=== PATIENT | male | born 1960 | race Caucasian/White ===

== ENCOUNTER → 2020-05-24 11:14 | Outpatient (CLI) | payer SELFPAY ==
--- NOTE | ~2020-05-24 | XR_ITS ---
XR_CERV2-3V_CR 05/24/2020 12:02 Indication: Chronic neck pain for 3 months Procedure: 4 views of the cervical spine Comparison: No prior studies for comparison. Findings: Vertebral body heights are maintained. There are prominent ventral osteophytes at multiple levels. There is moderate multilevel uncinate and facet hypertrophy. No prevertebral soft tissue swel ling. Odontoid process within normal limits. Lung apices are unremarkable. Impression: 1: Moderate cervical spondylosis. Reviewed, dictated and finalized at location A. T MANAGER Impression: 1: Moderate cervical spondylosis.
--- NOTE | ~2020-05-24 | XR_ITS ---
XR thoracic spine 2V 05/24/2020 12:02 Indication: Thoracic back pain Procedure: 2 views of the thoracic spine Comparison: No prior studies for comparison. Findings: Normal thoracic kyphosis. Mild levocurvature of the thoracic spine. There is mild disc narr owing and endplate degenerative change at multiple levels. No fracture or traumatic malalignment. No paraspinal soft tissue abnormality. There is atherosclerosis. Surrounding osseous structures within n ormal limits. Impression: 1: Mild thoracic spondylosis with levocurvature of the thoracic spine. Reviewed, dictated and finalized at location A. LY SERVICE ASSISTANT Impression: 1: Mild thoracic spondylosis with levocurvature of the thoracic spine.
== END ==
PROVIDERS: PCP Family Medicine; Visit Provider Family Medicine
DX: M47.813 Spondylosis without myelopathy or radiculopathy, cervicothoracic region (principal)
CPT/HCPCS: 72040; 72070

== ENCOUNTER 2020-10-21 12:44 | Outpatient (CLI) | payer BC, SELFPAY ==
--- NOTE | ~2020-10-21 | CT_ITS ---
EXAMINATION: CT abdomen pelvis wo con EXAM DATE: 10/21/2020 14:04 INDICATION: Kidney stone . Bilateral flank pain. TECHNIQUE: Spiral CT of the abdomen and pelvis was performed without contrast. Axial, coronal and sag ittal images were reviewed. The dose-length product (DLP) for this examination was 201.14 mGy-cm. T he exposure was tailored according to patient size (auto mA exposure control), and iterative reconstr uction (ASIR) was used as additional dose reduction technique. Comparison is made to prior examinatio n from 03/13/2019. FINDINGS: There is inferior calyceal stone measuring 7 mm. Additional several left calyceal stones up to 5 mm. No discrete right nephrolithiasis. No hydronephrosis or obstructive nephropathy. There are mildly hyperdense renal pyramids, mild medullary nephrocalcinosis. The prostate is unremarkable. Th e bladder is unremarkable. The liver, spleen, adrenal glands and pancreas are unremarkable. There are gallstones within an othe rwise unremarkable gallbladder. No evidence of obstructive biliary disease. There is no retroperito kenneth or pelvic lymphadenopathy. There is mild to moderate scattered arteriosclerotic disease. The appendix is normal. The stomach and small bowel are unremarkable. There is expected amount of c olonic stool. No free intraperitoneal gas. The heart is normal in size. There are no pericardial or pleural effusions. Mild basilar emphysema. There are no osteoblastic or osteolytic lesions iden tified. IMPRESSION: 1. Left nephrolithiasis. Mild bilateral medullary nephrocalcinosis. 2. Cholelithiasis. 3. No acute findings. Reviewed, dictated and finalized at location B.
--- NOTE | ~2020-10-21 | XR_ITS ---
XR wrist LT min 3V DATE: 10/21/2020 13:07 INDICATION: Hyperextension injury of thumb, scaphoid area pain TECHNIQUE: 4 views COMPARISON: None FINDINGS: Osteoarthritic changes noted at the radiocarpal, scapholunate, first carpometacarpal and fi rst metacarpophalangeal joints. There are some calcifications of the triangular cartilage. No fracture or dislocation, periosteal reaction or bone destruction. IMPRESSION: Polyarticular osteoarthritis Reviewed, dictated and finalized at location A.
--- NOTE | ~2020-10-21 | US_ITS ---
EXAMINATION: US renal BI EXAM DATE: 10/21/2020 14:05 INDICATION: increased frequency of urination . TECHNIQUE: Multiple grayscale and Doppler images of the kidneys were obtained (by a technologist who performed the scan) and subsequently reviewed. Correlation is made to noncontrast CT scan same date. FINDINGS: Right kidney: There is normal contour and echogenicity. It measures 11.7 x 6.2 x 4.6 centimeters. T here are no focal renal lesions identified. There is no hydronephrosis. Left kidney: There is normal contour and echogenicity. It measures 10.5 x 6.1 x 5.8 centimeters. Lar ge left nephrolithiasis. There is no hydronephrosis. Bladder prevoid volume was 58 mm, postvoid bladder volume 7 mm, small postvoid residual. IMPRESSION: 1. Left nephrolithiasis. 2. Small post void residual. Reviewed, dictated and finalized at location B.
== END 2020-10-21 12:45 | disposition home or self-care (01) ==
PROVIDERS: PCP Family Medicine; Referring Provider Family Medicine
DX: R35.0 Frequency of micturition (principal); N20.0 Calculus of kidney; K57.30 Diverticulosis of large intestine without perforation or abscess without bleeding; M19.032 Primary osteoarthritis, left wrist
CPT/HCPCS: 73110; 74176; 76775

== ENCOUNTER 2021-02-11 12:17 | Outpatient (RCR) | payer BC, SELFPAY ==
--- NOTE | 2021-02-11 13:56 | PTOPEVAL ---
PHYSICAL THERAPY EVALUATION and PLAN OF CARE Thank you for referring Joseph Zhang to [facility].? The patient is scheduled to be seen for therapy? 1-2x/week for 4-8 weeks. Please review, sign, date and return this plan of care FROILAN. I agree with and certify that the following plan of care is medically necessary. Referring Physician Date Attending Provider: Desmond Potter, PA Evaluation Diagnosis left shoulder pain, acute Onset 2months Subjective Information Reports that for several Query Text:As Reported By Patient/ months he has been Family experiencing pain in the left shoulder when raising overhead . States that when he raises it a certain way there is a pain that shoots across his back and up his neck. 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 other history: has history of chronic low back pain Self Report Pain Assessment Left Shoulder(s) Reported Pain Level 5 Pain Description Aching,Shooting,Stabbing Lowest Pain Intensity 4 Greatest Pain Intensity 10 Other Pain Aggravating Factors working overhead Pain Behaviors Guarding Pain Score Pain Score 5: Self Report Interventions Used Interventions Used By Clinicians Exercise,Manual Therapy Techniques Pain Relief Interventions Used By Medication Patient Upper Extremity Range of Motion Scapular/ Shoulder Range of Motion Left Shoulder Flexion - Active 130 Shoulder Abduction - Active 110 Shoulder Medial Rotation - Active l4 Query Text:Reach Behind the Back Upper Extremity Muscle Strength Testing Scapular/Shoulder Left Scapular Retraction - Middle Trapezius 4+ Good + Shoulder Flexion Strength 5 Normal Shoulder Extension Strength 5 Normal Shoulder Abduction Strength 5 Normal Shoulder Medial Rotation Strength 5 Normal Shoulder Lateral Rotation Strength 5 Normal Elbow/Forearm Left Elbow Flexion Strength 5 Normal Elbow Extension Strength 5 Normal Muscle Length Testing Muscle Length Testing Latissmus Dorsi Muscle Length (L) Moderate Tightness Upper Trapezius Muscle Length (R) Moderate Tightness,(L) Moderate Tightness Pectoralis Major Muscle Length (R) Severe Tightness,(L) Severe Tightness Pectoralis Major- Sternal Fibers Muscl
--- NOTE | 2021-02-18 15:57 | PCPTNOTE ---
Patient called & cancelled scheduled appointment this date due to work.
--- NOTE | 2021-02-25 17:20 | PCPTNOTE ---
Patient called & cancelled scheduled appointment this date due to running late from work.
--- NOTE | 2021-04-16 07:36 | PCPTNOTE ---
PHYSICAL THERAPY DISCHARGE NOTE Attending Provider: Desmond Potter, PA Patient:Joseph Zhang Date of :1960 Patient has not returned for any further treatments since 02/11/2021, therefore he will be discharged at this time. Patient?s initial visit was on 02/11/2021. The goals have been (met, not met, partially met). Thank you for referring this patient to [facility]. Please review, sign, date and return this discharge summary FROILAN. I have been updated about the patient's current status and I agree with discharge from the above service at this time. Referring Physician Date
== END 2021-04-20 12:53 | disposition home or self-care (01) ==
LOC: ANHPT 12:17
PROVIDERS: PCP Family Medicine; Visit Provider Physician Assistant
DX: S49.92XD Unspecified injury of left shoulder and upper arm, subsequent encounter (principal)
CPT/HCPCS: 97140; 97162

== ENCOUNTER 2021-08-10 14:52 | Outpatient (CLI) | payer BC, SELFPAY ==
--- NOTE | ~2021-08-10 | XR_ITS ---
XR wrist LT min 3V DATE: 08/10/2021 15:20 INDICATION: Left thumb pain TECHNIQUE: 4 views COMPARISON: 10/21/2020 left wrist FINDINGS: There is severe osteoarthritic change at the first carpometacarpal joint. There is osteoarthritis at the radiocarpal joint. There is mild osteoarthritis at the first metacarpo phalangeal joint. Mild triangular cartilage calcification. No fracture or dislocation, periosteal reaction or bone destruction. IMPRESSION: Osteoarthritis; little interval change since 10/21/2020 Reviewed, dictated and finalized at location A.
== END 2021-08-10 14:53 | disposition home or self-care (01) ==
LOC: ANHIMG 14:54
PROVIDERS: PCP Physician Assistant; Visit Provider Physician Assistant
DX: M79.645 Pain in left finger(s) (principal)
CPT/HCPCS: 73110

== ENCOUNTER 2021-09-30 10:52 | Outpatient (CLI) | payer BC, SELFPAY ==
--- NOTE | 2021-09-30 11:30 | NEURO_ITS ---
Impression: # Complains of left hand numbness. # No Carpal Tunnel Syndrome or ulnar neuropathy. # Needle/EMG exam abnormal with neurogenic changes in muscles. # Findings suggestive of higher involvement; MRI of C-spine suggested. Nerve Conduction Studies Anti Sensory Summary Table Stim Site NR Peak (ms) P-T Amp (?V) Site1 Site2 Delta-P (ms) Dist (cm) Rajat (m/s) Left Median Anti Sensory (2-3nd Digit) Wrist 3.7 18.0 Wrist 2-3nd Digit 3.7 14.0 38 Wrist 3.7 17.6 Wrist 2-3nd Digit 3.7 14.0 38 Left Radial Anti Sensory (Base 1st Digit) Wrist 2.4 18.1 Wrist Base 1st Digit 2.4 0.0 Left Ulnar Anti Sensory (5th Digit) Wrist 2.7 16.6 Wrist 5th Digit 2.7 14.0 52 Motor Summary Table Stim Site NR Onset (ms) O-P Amp (mV) Site1 Site2 Delta-0 (ms) Dist (cm) Rajat (m/s) Left Median Motor (Abd Poll Brev) Wrist 3.8 2.9 Elbow Wrist 5.7 30.0 53 Elbow 9.5 2.2 Left Ulnar Motor (Abd Dig Minimi) Wrist 2.7 6.0 A Elbow Wrist 5.7 33.0 58 A Elbow 8.4 4.9 F Wave Studies NR F-Lat (ms) L-R F-Lat (ms) Left Median (Mrkrs) (Abd Poll Brev) 28.20 Left Ulnar (Mrkrs) (Abd Dig Min) 29.86 EMG Side Muscle Nerve Root Ins Act Fibs Amp Dur Recrt Comment Left 1stDorInt Ulnar C8-T1 Nml Nml Nml >12ms Reduced Left Ext Indicis Radial (Post Int) C7-8 Nml Nml Nml Nml Nml Left Ext Digitorum Radial (Post Int) C7-8 Nml Nml Nml Nml Nml Left BrachioRad Radial C5-6 Nml Nml Nml >12ms Reduced Left PronatorTeres Median C6-7 Nml Nml Nml Nml Nml Left Abd Poll Brev Median C8-T1 Nml Nml Nml >12ms Reduced Left ABD Dig Min Ulnar C8-T1 Nml Nml Nml >12ms Reduced Left Biceps Musculocut C5-6 Nml Nml Nml >12ms Reduced Left Triceps Radial C6-7-8 Nml Nml Nml >12ms Reduced Left Deltoid Axillary C5-6 Nml Nml Nml >12ms Reduced MTDD
== END 2021-09-30 10:53 | disposition home or self-care (01) ==
LOC: ANHNEURO 10:54
PROVIDERS: PCP Physician Assistant; Visit Provider Physician Assistant
DX: R20.0 Anesthesia of skin (principal)
CPT/HCPCS: 95886; 95909

== ENCOUNTER 2022-01-04 11:16 | Emergency (ER) | payer BC, SELFPAY ==
[2022-01-04 11:27] VITALS: BP 126/76; PULSE 67; RESP 16; TEMP 36; O2SAT 100
--- NOTE | 2022-01-04 12:28 | ED.UPPEXIN ---
HPI - Extremity Injury (Upper) General Chief Complaint: Extremity Injury, Upper Stated Complaint: Right Hand Pain Time Seen by Provider: 01/04/22 12:28 Source: patient, RN notes reviewed and old records reviewed Mode of arrival: ambulatory Limitations: no limitations History of Present Illness HPI narrative: 61-year-old male presents to the [facility] with complaints of right hand pain, redness and swelling to the palmar aspect just below the second digit. Patient states approximately 1 week ago he got an aluminum sliver stuck in his hand, dug it out. Has full range of motion of all 5 fingers. Sensation intact in all 5 fingers. Capillary refill under 2 seconds. Unknown last Tdap Related Data Home Medications Medication Instructions Recorded Confirmed hydrocodone 5 mg-acetaminophen 325 1 tablet PO Q6H PRN Pain 01/04/22 01/04/22 mg tablet prednisone 10 mg tablet 10 mg PO DAILY 01/04/22 01/04/22 Allergies Allergy/AdvReac Type Severity Reaction Status Date / Time No Known Allergies Allergy Unknown Verified 01/04/22 11:50 Review of Systems Review of Systems: All systems reviewed & are unremarkable except as noted in HPI and below Constitutional: Constitutional: Reports no additional constitutional complaints, Denies chills and Denies fever(s) Eyes: Eyes: Reports no additional eye complaints ENT: Reports system reviewed and no additional complaints, except as documented Cardiovascular: Cardiovascular: Reports no additional cardiovascular complaints Respiratory: Respiratory: Reports no additional respiratory complaints Gastrointestinal: Gastrointestinal: Reports no additional gastrointestinal complaints Musculoskeletal: Musculoskeletal: Reports as per HPI Integumentary/Breasts: Skin/Breast: Reports as per HPI and Reports erythema Neurologic: Reports system reviewed and no additional complaints, except as documented Psychiatric: Psychiatric: Reports no additional psychiatric complaints Allergic/Immunologic: Allergic/Immunologic: Reports no additional allergic/immunologic complaints [facility] Family History Family History Father Hypertension Family history of coronary artery disease Family history of malignant neoplasm Family history of congestive heart failure Mother Hypertension Family history of diabetes mellitus in first degree relative Family history of dementia Family history of congestive heart failure Social History Social History Smoking status: Smoker, status unknown Second hand tobacco smoke exposure: Yes Alcohol intake: current Gender identity (if verbalized by the patient): Male Comments At the time of my signature, I reviewed and agree with the nursing past medical, surgical, social, and family history. There is no relevant family history pertinent to the patient complaint. Exam Const: General: healthy appearing, no acute distress and alert Nutritional Appearance: well nourished Orientation/consciousness: patient oriented x3 Limitations: no limitations HENMT: Head: normal to inspection Ears: external ears normal General nose exam: Normal external nose present Eyes: General: appearance normal, both eyes and all related structures Pupils: Equal, round and reactive pupils present Neck: Neck: normal visual inspection, no lymphadenopathy and no meningeal signs Chest: Chest palpation & inspection: normal inspection of the chest Resp: Effort & Inspection: normal respiratory effort and no use of accessory muscles Auscultation: clear to auscultation bilaterally, no crackles, no rales, no rhonchi and no wheezes Cardio: Rate: regular rate Rhythm: regular rhythm Back/Spine/Pelvis: Cervical Spine: normal cervical lordosis Thoracic/Lumbar Spine: thoracic and lumbar spine normal to inspection Skin: General skin exam: normal color Rashes: no rashes Neuro:
[2022-01-04] MEDS: TETANUS,DIPHTHERIA,AC PERTUSSIS ADULT (0.5 ML) BOOSTRIX IM (12:43)
== END 2022-01-04 13:06 | disposition home or self-care (01) ==
PROVIDERS: Emergency Provider Nurse Practitioner; PCP Physician Assistant
DX: L03.113 Cellulitis of right upper limb (principal); Z23 Encounter for immunization; M06.9 Rheumatoid arthritis, unspecified
CPT/HCPCS: 90471; 90715; 99213; G0463

== ENCOUNTER 2022-01-07 17:13 | Emergency (ER) | payer BC, SELFPAY ==
--- NOTE | ~2022-01-07 | XR_ITS ---
XR hand RT min 3V 01/07/2022 18:38 Indication: Infection second metacarpal phalangeal joint. Procedure: 3 views right hand Comparison: No prior studies for comparison. Findings: There is polyarticular osteoarthritis most advanced at the triscaphe, first carpal metacarp al and metacarpal phalangeal joints. There is probable chondrocalcinosis at the third metacarpophalan geal joint. No acute fracture or traumatic malalignment. There are are atherosclerotic changes of the wrist. No foreign bodies. Impression: 1: No acute bone or joint abnormality. 2: Moderate polyarticular osteoarthritis. Reviewed, dictated and finalized at location A. Impression: 1: No acute bone or joint abnormality. 2: Moderate polyarticular osteoarthritis.
[2022-01-07 17:16] VITALS: BP 142/71; PULSE 61; RESP 20; TEMP 36.4; O2SAT 100
[2022-01-07 17:26] LABS: Basophils Percent Auto 0.1 % (0.2-1.2); Eosinophils Absolute Auto 0.1 K/mm3 (0-0.3); Hematocrit 41.5 % (42.0-52.0); Hemoglobin 14.6 g/dL (14.0-18.0); Immature Granulocyte Absolute 0.04 K/mm3 (0.00-0.031); Immature Granulocyte Percent A 0.6 % (0-0.5); Lymphocytes Absolute Auto 1.87 K/mm3 (0.9-3.2); Lymphocytes Percent Auto 26.6 % (18.3-44.2); Mean Corpuscular HGB Conc 35.2 g/dl (32-36); Mean Corpuscular Hemoglobin 34.4 pg (26-34); Mean Corpuscular Volume 97.6 fl (80-100); Mean Platelet Volume 10.3 fl (7.4-10.4); Monocytes Absolute Auto 0.9 K/mm3 (0.1-0.6); Monocytes Percent Auto 13.1 % (2.6-8.5); Neutrophils Absolute Auto 4.1 K/mm3 (1.3-6.7); Neutrophils Percent Auto 58.6 % (45.5-73.1); Platelet Count Result 167 k/mm3 (150-375); Red Blood Count 4.25 M/mm3 (4.6-6.20); Red Cell Distribution Width 12.5 % (11.5-14.5)
[2022-01-07 17:37] LABS: Alanine Aminotransferase 108 U/L (6-50); Albumin Level 4.1 g/dL (3.5-5.1); Alkaline Phosphatase 114 U/L (38-126); Anion Gap 9 mmol/L (8-16); Aspartate Amino Transferase 101 U/L (17-59); Bilirubin,Total 0.6 mg/dL (0.2-1.3); Blood Urea Nitrogen 24 mg/dL (9-20); Calcium 9.4 mg/dL (8.4-10.2); Carbon Dioxide 25 mmol/L (22-30); Chloride 101 mmol/L (98-107); Estimated CRCL calculation 103 ml/min; Estimated Glomerular Filt Rate > 60; Glucose 191 mg/dL (65-110); Potassium 3.8 mmol/L (3.4-5.0); Sodium 135 mmol/L (137-145)
--- NOTE | 2022-01-07 18:14 | ED.SKABFB ---
HPI - Skin/Abscess/Foreign Bdy General Chief complaint: Skin/Abscess/Foreign Body Stated complaint: right hand infected Time Seen by Provider: 01/07/22 17:56 History of Present Illness HPI narrative: Patient is a 61-year-old male presenting with concerns for hand infection. Patient states that about a week ago he got a piece of aluminum stuck in the palm of his right hand. He pulled it out but then he developed redness and swelling after a couple of days. He went to urgent care and was sent home on clindamycin. States he has been taking this for the last 3 days as prescribed. Today, the swelling and redness worsened and now involves his entire right hand. States the pain is a 7 out of 10. He denies fevers or chills, nausea or vomiting, or other systemic symptoms. States he can still move his finger fully but it hurts. Related Data Home Medications Medication Instructions Recorded Confirmed hydrocodone 5 mg-acetaminophen 325 1 tablet PO Q6H PRN Pain 01/04/22 01/04/22 mg tablet prednisone 10 mg tablet 10 mg PO DAILY 01/04/22 01/04/22 Allergies Allergy/AdvReac Type Severity Reaction Status Date / Time No Known Allergies Allergy Unknown Verified 01/07/22 18:37 Review of Systems Review of Systems: All systems reviewed & are unremarkable except as noted in HPI and below PMFSH Family History Family History Father Hypertension Family history of coronary artery disease Family history of malignant neoplasm Family history of congestive heart failure Mother Hypertension Family history of diabetes mellitus in first degree relative Family history of dementia Family history of congestive heart failure Social History Social History Smoking status: Smoker, status unknown Second hand tobacco smoke exposure: Yes Alcohol intake: current Gender identity (if verbalized by the patient): Male Exam Narrative: GENERAL: Well-appearing, well-nourished, and in no acute distress. HEAD: Normocephalic, atraumatic. EYES: PERRLA and EOMI. ENT: Nares clear, no rhinorrhea or epistaxis. Mucous membranes moist. NECK: Supple. CHEST: Clear to auscultation. No respiratory distress. HEART: Regular rate and rhythm. No murmur heard. Normal peripheral pulses. ABDOMEN: Soft, nontender, nondistended, normal active bowel sounds. EXTREMITIES: R 2nd MCP joint red, swollen, tender; erythema and edema involving entire dorsum of R hand, brisk cap refill SKIN: Warm, dry, no rash. NEURO: No focal deficits. Alert and oriented x3. PSYCH: Normal mood and affect. Course Vital Signs Vital signs: Vital Signs Temperature 97.6 F 01/07/22 17:16 Pulse Rate 61 01/07/22 17:16 Respiratory Rate 20 01/07/22 17:16 Blood Pressure 142/71 H 01/07/22 17:16 Pulse Oximetry 100 01/07/22 17:16 Temperature 97.6 F 01/07/22 17:16 Pulse Rate 61 01/07/22 17:16 Respiratory Rate 20 01/07/22 17:16 Blood Pressure 142/71 H 01/07/22 17:16 Pulse Oximetry 100 01/07/22 17:16 MDM - Skin/Abscess/Foreign Bdy MDM Narrative Medical decision making narrative: Patient is a 61-year-old male presenting with concerns for a finger infection. Vitals within normal limits. Patient is nontoxic and in no acute distress. Exam is remarkable for the above. Blood work is unremarkable. X-ray shows no retained foreign bodies or other acute abnormalities. I spoke with orthopedics who advised that I speak with hand surgery. I spoke with hand surgery at [facility] who will see the patient in their ED. I spoke with Dr. Wasserman with [facility]'s ED who has accepted the patient for transfer. Patient given a dose of IV Vanco prior to transfer. Patient's underage daughter is with him and they do not have anyone to pick her up. Patient would like to go by private vehicle which I think is okay. Advised that he go straight to [facility] labs ER. E[place]
--- NOTE | 2022-01-07 19:17 | PC.NURSE ---
Patient report given to CAROLYN Crowell. All questions answered and care of patient transferred.
== END 2022-01-07 20:50 | disposition short-term general hospital (02) ==
PROVIDERS: Emergency Provider Emergency Medicine; PCP Physician Assistant
DX: L08.9 Local infection of the skin and subcutaneous tissue, unspecified (principal)
CPT/HCPCS: 36415; 73130; 80053; 85025; 96365; 99284; J3370